=== PATIENT | female | born 1990 | race Caucasian/White ===

== ENCOUNTER 2019-07-19 20:50 | Emergency (ER) | payer MEDICAID ==
[~2019-07-19] VITALS: Ht 170.2 cm; Wt 70.3 kg
[2019-07-19 21:25] VITALS: BP_SYST 114
[2019-07-19 22:56] LABS: THYROID STIMULATING HORMONE 1.58 uIu/mL (0.36-3.74)
[2019-07-19 23:23] VITALS: BP_SYST 119
== END 2019-07-19 23:17 | disposition home or self-care (01) ==
LOC: SED 20:50
DX: R22.1 Localized swelling, mass and lump, neck (principal)
CPT/HCPCS: 36415; 70360-TC; 84439; 84443-TC; 86308-TC; 86403; 87081; 99284

== ENCOUNTER 2020-04-05 04:59 | Emergency (ER) | payer OTHER, MEDICAID ==
[~2020-04-05] VITALS: Ht 165.1 cm; Wt 68.9 kg
[2020-04-05 04:59] VITALS: BP_SYST 149
--- NOTE | 2020-04-05 05:17 | NUR ---
Patient to ER bed 4 to gown for evaluation. Side rails up.
--- NOTE | 2020-04-05 05:18 | NUR ---
Patient came to ER. C/O abdominal pain x 3 days. A/O,X4, LLQ abdominal pain, pain rate 8/10, radiate to lower back, vss.
--- NOTE | 2020-04-05 05:32 | NUR ---
ER at bedside examining patient.
[2020-04-05] MEDS ORDERED: NACL 0.9% 1,000 ML IV ONE (05:40)
[2020-04-05] MEDS ORDERED: KETOROLAC TROMETHAMINE 30 MG VIAL IVP ONE (05:45)
[2020-04-05 05:49] LABS: BILIRUBIN,URINE NEGATIVE (NEGATIVE); BLOOD, URINE NEGATIVE (NEGATIVE); CLARITY/URINE CLEAR (CLEAR); COLOR,URINE YELLOW (YELLOW); GLUCOSE,URINE NEGATIVE (NEGATIVE); KETONES,URINE NEGATIVE (NEGATIVE); LEUKOCYTE ESTERASE ,URINE TRACE (NEGATIVE); NITRITE, URINE NEGATIVE (NEGATIVE); PH,URINE 6.5 (5.0-8.0); PROTEIN URINE NEGATIVE (NEGATIVE); UROBILINOGEN,URINE 0.2 (0.2-1.0)
[2020-04-05 05:53] LABS: BACTERIA,URINE FEW /HPF (None Seen); RBC,URINE 0-3 /HPF (0-3)
[2020-04-05] MEDS ORDERED: NALOXONE HCL 0.4 MG/ML AMP (NARCAN) ONE (05:58)
[2020-04-05 06:05] LABS: BASOPHILS % (AUTO) 0.5 % (0.0-2.0); EOSINOPHILS # (AUTO) 0.1 K/uL (0.0-0.4); HEMATOCRIT 41.4 % (36-48); HEMOGLOBIN 13.7 g/dL (12.0-16.0); LYMPHOCYTES # (AUTO) 1.8 K/uL (1.0-5.5); LYMPHOCYTES % (AUTO) 34.3 % (20.5-51.5); MEAN CORPUSCULAR HEMOGLOBIN 31 pg (27-31); MEAN CORPUSCULAR HGB CONC 33 % (32-36); MEAN CORPUSCULAR VOLUME 92 fL (79.0-98.0); MONOCYTES # (AUTO) 0.4 K/uL (0.0-1.0); MONOCYTES % (AUTO) 8.1 % (1.7-9.3); NEUTROPHILS # (AUTO) 2.9 K/uL (1.8-7.7); NEUTROPHILS % (AUTO) 56.1 % (40.0-70.0); PLATELET COUNT (AUTO) 201 K/uL (130-430); RED BLOOD CELL COUNT(AUTO) 4.48 MIL/uL (4.2-6.2); RED CELL DISTRIBUTION WIDTH 12.4 % (9.0-15.0); WHITE BLOOD COUNT (AUTO) 5.2 K/uL (4.8-10.8)
--- NOTE | 2020-04-05 06:10 | NUR ---
Given Toradol 30 mg IV half dose , patient states " I feel hot, buning chest and palpitation." , Stop medication and reported Dr. Moon.
[2020-04-05] MEDS ORDERED: DIPHENHYDRAMINE INJ 50 MG/ML VIAL IVP ONE (06:15)
--- NOTE | 2020-04-05 06:22 | NUR ---
Patient refused Benadyl IV medication, Dr. Moon notified.
[2020-04-05] MEDS ORDERED: DIPHENHYDRAMINE HCL 25 MG CAPSULE PO ONE (06:30)
[2020-04-05 06:37] LABS: CALCIUM 8.9 mg/dL (8.4-11.0); CREATININE 0.89 mg/dL (0.55-1.30)
[2020-04-05] MEDS ORDERED: DIPHENHYDRAMINE INJ 50 MG/ML VIAL ONE (06:37)
[2020-04-05 06:43] LABS: ALBUMIN 3.5 g/dL (3.4-4.8); TOTAL BILIRUBIN 0.3 mg/dL (0.0-1.0)
--- NOTE | 2020-04-05 08:15 | NUR ---
PT ALERT AND ORIENTED. ABLE TO COMMUNICATE ALL NEEDS WELL. CONTINUES TO C/O LEFT LOWER ABDOMINAL PAIN. 10/23 AT THIS TIME. ABLE TO AMBULATE TO BATHROOM. VSS.
[2020-04-05 09:14] VITALS: BP_SYST 124
--- NOTE | 2020-04-05 09:16 | NUR ---
Patient given written and verbal discharge instructions and verbalizes understanding. ER MD discussed with patient the results and treatment provided. Patient in stable condition. ID arm band removed. IV catheter removed intact and dressing applied, no active bleeding. Rx of Ibuprofen given. Patient educated on pain management and to follow up with PMD. Pain Scale 0/10 . Opportunity for questions provided and answered. Medication side effect fact sheet provided.
== END 2020-04-05 09:16 | disposition home or self-care (01) ==
LOC: SED 04:59
DX: R10.32 Left lower quadrant pain (principal); F41.9 Anxiety disorder, unspecified; Z88.5 Allergy status to narcotic agent
CPT/HCPCS: 36415; 76830; 76857; 80053; 81000; 81025; 85025; 96361; 96374; 99284; J1885; J7030; Q0163; J1200; J2310

== ENCOUNTER 2020-07-14 18:43 | Emergency (ER) | payer OTHER, MEDICAID ==
[~2020-07-14] VITALS: Ht 167.6 cm; Wt 63.5 kg
[2020-07-14 18:48] VITALS: BP_SYST 139
--- NOTE | 2020-07-14 19:11 | NUR ---
Patient to ER bed 3 to gown for evaluation. Side rails up. Report given to Erin ISSA.
--- NOTE | 2020-07-14 19:15 | NUR ---
PT AAO AND AMBULATORY C/O RIGHT TOE PAIN AFTER KICKING AN OBJECT. PT REPORTS PAIN IS CURRENTLY 8/10 ON PAIN SCALE.
--- NOTE | 2020-07-14 19:40 | NUR ---
ER Dr. VANCE at bedside examining patient.
[2020-07-14 20:00] VITALS: BP_SYST 139
[2020-07-14] MEDS ORDERED: IBUPROFEN 600 MG TABLET PO ONE (20:00)
--- NOTE | 2020-07-14 20:00 | NUR ---
Patient given written and verbal discharge instructions and verbalizes understanding. DR. RAJIV CARNEY MD discussed with patient the results and treatment provided. Patient in stable condition. ID arm band removed. Rx of IBUPROFEN given. Patient educated on pain management and to follow up with PMD. Pain Scale 2/10. Opportunity for questions provided and answered. Medication side effect fact sheet provided.
== END 2020-07-14 20:00 | disposition home or self-care (01) ==
LOC: SED 18:43
DX: S92.911A Unspecified fracture of right toe(s), initial encounter for closed fracture (principal); Z88.6 Allergy status to analgesic agent; W22.8XXA Striking against or struck by other objects, initial encounter; Y93.89 Activity, other specified; Y92.89 Other specified places as the place of occurrence of the external cause; Y99.8 Other external cause status
CPT/HCPCS: 99283

== ENCOUNTER 2020-07-26 16:26 | Emergency (ER) | payer OTHER, MEDICAID ==
[~2020-07-26] VITALS: Ht 167.6 cm; Wt 63.5 kg
[2020-07-26 16:31] VITALS: BP_SYST 143
--- NOTE | 2020-07-26 16:45 | NUR ---
Placed in room H1 . Placed on stained glass window designer, blood pressure machine and pulse oximeter. To gown for exam. Side rails up.
--- NOTE | 2020-07-26 17:05 | NUR ---
"RECEIVED AND ON MONITOR, ST [address] NO ECTOPY. RESP TACY 24. STATES FEELING "A LITTLE BETTER"
--- NOTE | 2020-07-26 17:35 | NUR ---
STATED FEELING BETTER, RESP UNLABORED, SKIN WARM AND DRY. COMMUNICATES CLEARLY IN FULL COMPLETE SENTENCES
[2020-07-26] MEDS ORDERED: LORazepam 1 MG TABLET PO ONE (17:45)
--- NOTE | 2020-07-26 18:15 | NUR ---
Patient given written and verbal discharge instructions and verbalizes understanding. ER MD discussed with patient the results and treatment provided. Patient in stable condition. ID arm band removed. Rx XANAX given. Patient educated on pain management and to follow up with PMD. Pain Scale 0/10 Opportunity for questions provided and answered. Medication side effect fact sheet provided.
[2020-07-26 18:36] VITALS: BP_SYST 120
== END 2020-07-26 18:15 | disposition home or self-care (01) ==
LOC: SED 16:26
DX: F41.9 Anxiety disorder, unspecified (principal); R00.0 Tachycardia, unspecified; Z88.6 Allergy status to analgesic agent
CPT/HCPCS: 93005; 99283

== ENCOUNTER 2020-09-16 14:07 | Emergency (ER) | payer OTHER, MEDICAID ==
[~2020-09-16] VITALS: Ht 167.6 cm; Wt 65.8 kg
[2020-09-16 14:15] VITALS: BP_SYST 124
--- NOTE | 2020-09-16 14:50 | NUR ---
Patient to ER bed 3 to gown for evaluation. Side rails up. Report given to Elisabeth ISSA.
--- NOTE | 2020-09-16 14:52 | NUR ---
Patient presented to ER C/O abdominal pain. Patient A&Ox4, ambulatory to ER, afebrile, skin pink & wrm, pain 11/23, denies N/V/D. Patient states she is 8 weeks , abdominal pain with "feeling hot" for 2 days with out fever.
--- NOTE | 2020-09-16 14:55 | NUR ---
ER Dr. FLOREZ at bedside examining patient.
[2020-09-16 15:49] LABS: BASOPHILS % (AUTO) 0.4 % (0.0-2.0); HEMATOCRIT 40.1 % (36-48); HEMOGLOBIN 13.8 g/dL (12.0-16.0); LYMPHOCYTES # (AUTO) 1.9 K/uL (1.0-5.5); LYMPHOCYTES % (AUTO) 23.3 % (20.5-51.5); MEAN CORPUSCULAR HEMOGLOBIN 32 pg (27-31); MEAN CORPUSCULAR HGB CONC 35 % (32-36); MEAN CORPUSCULAR VOLUME 92 fL (79.0-98.0); MONOCYTES # (AUTO) 0.7 K/uL (0.0-1.0); MONOCYTES % (AUTO) 8.4 % (1.7-9.3); NEUTROPHILS # (AUTO) 5.4 K/uL (1.8-7.7); NEUTROPHILS % (AUTO) 67.9 % (40.0-70.0); PLATELET COUNT (AUTO) 225 K/uL (130-430); RED BLOOD CELL COUNT(AUTO) 4.36 MIL/uL (4.2-6.2)
[2020-09-16 16:11] LABS: CALCIUM 8.6 mg/dL (8.4-11.0); CREATININE 0.81 mg/dL (0.55-1.30); POTASSIUM 3.7 mmol/L (3.5-5.1)
[2020-09-16 16:38] LABS: ALBUMIN 3.9 g/dL (3.4-4.8); TOTAL BILIRUBIN 0.3 mg/dL (0.0-1.0)
[2020-09-16 16:51] LABS: BILIRUBIN,URINE NEGATIVE (NEGATIVE); BLOOD, URINE NEGATIVE (NEGATIVE); COLOR,URINE YELLOW (YELLOW); GLUCOSE,URINE NEGATIVE (NEGATIVE); KETONES,URINE TRACE (NEGATIVE); LEUKOCYTE ESTERASE ,URINE NEGATIVE (NEGATIVE); NITRITE, URINE NEGATIVE (NEGATIVE); PH,URINE 6.5 (5.0-8.0); PROTEIN URINE NEGATIVE (NEGATIVE); UROBILINOGEN,URINE 0.2 (0.2-1.0)
[2020-09-16 16:54] LABS: CLARITY/URINE SLIGHTLY HAZY (CLEAR)
[2020-09-16 17:39] VITALS: BP_SYST 122
--- NOTE | 2020-09-16 17:40 | NUR ---
Patient given written and verbal discharge instructions and verbalizes understanding. ER MD discussed with patient the results and treatment provided. Patient in stable condition. ID arm band removed. Rx of ZOFRAN given. Patient educated on pain management and to follow up with PMD. Pain Scale 3/10. Opportunity for questions provided and answered. Medication side effect fact sheet provided.
== END 2020-09-16 17:39 | disposition home or self-care (01) ==
LOC: SED 14:07
DX: O21.8 Other vomiting complicating pregnancy (principal); O26.891 Other specified pregnancy related conditions, first trimester; R50.9 Fever, unspecified; Z3A.08 8 weeks gestation of pregnancy
CPT/HCPCS: 36415; 76801; 80053; 81003; 83690-TC; 84702-TC; 85025; 99284

== ENCOUNTER 2021-02-22 11:44 | Observation (INO) | payer OTHER, MEDICAID ==
[2021-02-22 14:22] VITALS: BP_SYST 119
== END 2021-02-22 13:45 | disposition home or self-care (01) ==
LOC: SPU 11:44
PROVIDERS: ADMIT Specialist; ATTEND Specialist
DX: O26.853 Spotting complicating pregnancy, third trimester (principal); O62.9 Abnormality of forces of labor, unspecified; Z3A.30 30 weeks gestation of pregnancy
CPT/HCPCS: 81002; G0378

== ENCOUNTER 2021-02-24 16:12 | Observation (INO) | payer OTHER, MEDICAID ==
[~2021-02-24] VITALS: Ht 167.6 cm; Wt 74.4 kg
[2021-02-24] MEDS ORDERED: NITROFURANTOIN MONOHYD/M-CRYST 100 MG CAPSULE (MacroBID) PO ONE (17:15)
[2021-02-24 17:30] LABS: BILIRUBIN,URINE NEGATIVE (NEGATIVE); COLOR,URINE YELLOW (YELLOW); GLUCOSE,URINE NEGATIVE (NEGATIVE); KETONES,URINE NEGATIVE (NEGATIVE); LEUKOCYTE ESTERASE ,URINE 3+ (NEGATIVE); NITRITE, URINE NEGATIVE (NEGATIVE); PROTEIN URINE NEGATIVE (NEGATIVE); UROBILINOGEN,URINE 0.2 (0.2-1.0)
[2021-02-24 17:35] LABS: BLOOD, URINE TRACE (NEGATIVE); CLARITY/URINE HAZY (CLEAR)
[2021-02-24 17:42] LABS: BACTERIA,URINE MODERATE /HPF (None Seen); RBC,URINE 0-3 /HPF (0-3); WBC,URINE 20-50 /HPF (0-3)
[2021-02-24 17:43] LABS: MUCUS,URINE 1+ /LPF (None Seen)
== END 2021-02-24 17:47 | disposition home or self-care (01) ==
LOC: SPU 16:12
PROVIDERS: ADMIT Specialist; ATTEND Specialist
DX: O26.893 Other specified pregnancy related conditions, third trimester (principal); R10.30 Lower abdominal pain, unspecified; Z3A.30 30 weeks gestation of pregnancy
CPT/HCPCS: 81000; 87086; G0378

== ENCOUNTER 2021-03-12 13:13 | Observation (INO) | payer OTHER, MEDICAID ==
[~2021-03-12] VITALS: Ht 167.6 cm; Wt 76.7 kg
[2021-03-12 13:56] LABS: BILIRUBIN,URINE NEGATIVE (NEGATIVE); BLOOD, URINE NEGATIVE (NEGATIVE); COLOR,URINE YELLOW (YELLOW); GLUCOSE,URINE NEGATIVE (NEGATIVE); KETONES,URINE NEGATIVE (NEGATIVE); LEUKOCYTE ESTERASE ,URINE 2+ (NEGATIVE); NITRITE, URINE NEGATIVE (NEGATIVE); PROTEIN URINE NEGATIVE (NEGATIVE); UROBILINOGEN,URINE 0.2 (0.2-1.0)
[2021-03-12 13:57] LABS: CLARITY/URINE SLIGHTLY HAZY (CLEAR)
[2021-03-12 14:06] LABS: BASOPHILS % (AUTO) 0.1 % (0.0-2.0); EOSINOPHILS % (AUTO) 0.2 % (0.0-4.0); HEMOGLOBIN 10.7 g/dL (12.0-16.0); LYMPHOCYTES # (AUTO) 1.8 K/uL (1.0-5.5); LYMPHOCYTES % (AUTO) 17.1 % (20.5-51.5); MEAN CORPUSCULAR HEMOGLOBIN 31 pg (27-31); MEAN CORPUSCULAR HGB CONC 34 % (32-36); MEAN CORPUSCULAR VOLUME 92 fL (79.0-98.0); MONOCYTES # (AUTO) 0.7 K/uL (0.0-1.0); NEUTROPHILS # (AUTO) 7.9 K/uL (1.8-7.7); NEUTROPHILS % (AUTO) 75.6 % (40.0-70.0); PLATELET COUNT (AUTO) 194 K/uL (130-430); RED BLOOD CELL COUNT(AUTO) 3.48 MIL/uL (4.2-6.2); RED CELL DISTRIBUTION WIDTH 12.8 % (9.0-15.0); WHITE BLOOD COUNT (AUTO) 10.4 K/uL (4.8-10.8)
[2021-03-12 14:07] LABS: BACTERIA,URINE MODERATE /HPF (None Seen); MUCUS,URINE 2+ /LPF (None Seen); RBC,URINE 0-3 /HPF (0-3)
[2021-03-12 14:08] LABS: CALCIUM 8.6 mg/dL (8.4-11.0); CREATININE 0.66 mg/dL (0.55-1.30)
[2021-03-12 14:14] LABS: ALBUMIN 2.6 g/dL (3.4-4.8); TOTAL BILIRUBIN 0.2 mg/dL (0.0-1.0)
== END 2021-03-12 17:00 | disposition home or self-care (01) ==
LOC: SPU 13:13
PROVIDERS: ADMIT Specialist; ATTEND Specialist
DX: O26.893 Other specified pregnancy related conditions, third trimester (principal); R10.9 Unspecified abdominal pain; O99.891 Other specified diseases and conditions complicating pregnancy; M54.9 Dorsalgia, unspecified; Z3A.32 32 weeks gestation of pregnancy
CPT/HCPCS: 36415; 76700; 80053; 81000; 85025; G0378

== ENCOUNTER 2021-03-21 17:30 | Observation (INO) | payer OTHER, MEDICAID ==
[~2021-03-21] VITALS: Ht 167.6 cm; Wt 77.1 kg
== END 2021-03-21 18:50 | disposition home or self-care (01) ==
LOC: SPU 17:30
PROVIDERS: ADMIT Specialist; ATTEND Specialist
DX: O26.893 Other specified pregnancy related conditions, third trimester (principal); R10.9 Unspecified abdominal pain; O99.891 Other specified diseases and conditions complicating pregnancy; N13.30 Unspecified hydronephrosis; Z3A.34 34 weeks gestation of pregnancy
CPT/HCPCS: 81002; G0378

== ENCOUNTER 2021-03-30 12:51 | Emergency (ER) | payer OTHER, MEDICAID ==
[~2021-03-30] VITALS: Ht 167.6 cm; Wt 78.5 kg
--- NOTE | 2021-03-30 12:51 | NUR ---
Patient to ER bed 1 to gown for evaluation. Side rails up.
[2021-03-30 12:57] VITALS: BP_SYST 140
--- NOTE | 2021-03-30 13:00 | NUR ---
pt referred by Dr. Antunez to r/out RLE DVT. Pt has been on bed rest for approx 2 weeks. Arrives w/ RLE pain 12/23
--- NOTE | 2021-03-30 13:10 | NUR ---
ER at bedside examining patient.
[2021-03-30 13:35] LABS: BASOPHILS % (AUTO) 0.2 % (0.0-2.0); EOSINOPHILS % (AUTO) 0.2 % (0.0-4.0); HEMATOCRIT 31.2 % (36-48); HEMOGLOBIN 10.6 g/dL (12.0-16.0); INR 0.9 (0.8-1.2); LYMPHOCYTES # (AUTO) 1.6 K/uL (1.0-5.5); LYMPHOCYTES % (AUTO) 17.7 % (20.5-51.5); MEAN CORPUSCULAR HEMOGLOBIN 31 pg (27-31); MEAN CORPUSCULAR HGB CONC 34 % (32-36); MEAN CORPUSCULAR VOLUME 90 fL (79.0-98.0); MONOCYTES # (AUTO) 0.5 K/uL (0.0-1.0); MONOCYTES % (AUTO) 5.6 % (1.7-9.3); NEUTROPHILS # (AUTO) 6.7 K/uL (1.8-7.7); NEUTROPHILS % (AUTO) 76.3 % (40.0-70.0); PLATELET COUNT (AUTO) 188 K/uL (130-430); PROTHROMBIN TIME 9.7 SECS (9.5-12.5); RED BLOOD CELL COUNT(AUTO) 3.48 MIL/uL (4.2-6.2); RED CELL DISTRIBUTION WIDTH 13.2 % (9.0-15.0); WHITE BLOOD COUNT (AUTO) 8.8 K/uL (4.8-10.8)
[2021-03-30 13:36] LABS: ANION GAP 10 (5-15); CALCIUM 8.5 mg/dL (8.4-11.0); CHLORIDE 105 mmol/L (98-107); CREATININE 0.67 mg/dL (0.55-1.30); GFR AFRICAN AMERICAN 132 mL/min (>90); GLUCOSE 100 mg/dL (70-99); POTASSIUM 3.5 mmol/L (3.5-5.1); SODIUM SERUM 138 mmol/L (136-145); UREA NITROGEN, BLOOD 9 mg/dL (8-21)
[2021-03-30 13:40] LABS: ALANINE AMINOTRANSFERASE 23 U/L (12-78); ALBUMIN 2.7 g/dL (3.4-4.8); ASPARTATE AMINOTRANSFERASE 20 U/L (10-37); C-REACTIVE PROTEIN QUANT < 0.2 mg/dL (0-0.5); TOTAL BILIRUBIN 0.3 mg/dL (0.0-1.0)
--- NOTE | 2021-03-30 14:00 | NUR ---
US at the bedside
[2021-03-30 15:05] VITALS: BP_SYST 140
--- NOTE | 2021-03-30 15:05 | NUR ---
Patient given written and verbal discharge instructions and verbalizes understanding. ER MD discussed with patient the results and treatment provided. Patient in stable condition. ID arm band removed. Patient educated on pain management and to follow up with PMD. Pain Scale 3/10. Opportunity for questions provided and answered. Medication side effect fact sheet provided.
== END 2021-03-30 15:05 | disposition home or self-care (01) ==
LOC: SED 12:51
DX: M79.604 Pain in right leg (principal)
CPT/HCPCS: 36415; 80053; 85025; 85610-TC; 85730-TC; 86140; 93971; 99284

== ENCOUNTER 2021-04-02 08:16 | Emergency (ER) | payer OTHER, MEDICAID ==
[~2021-04-02] VITALS: Ht 162.6 cm; Wt 78.5 kg
[2021-04-02 08:19] VITALS: BP_SYST 154
[2021-04-02 08:34] LABS: BILIRUBIN,URINE NEGATIVE (NEGATIVE); BLOOD, URINE NEGATIVE (NEGATIVE); CLARITY/URINE CLEAR (CLEAR); COLOR,URINE YELLOW (YELLOW); GLUCOSE,URINE NEGATIVE (NEGATIVE); KETONES,URINE NEGATIVE (NEGATIVE); LEUKOCYTE ESTERASE ,URINE 3+ (NEGATIVE); NITRITE, URINE NEGATIVE (NEGATIVE); PH,URINE 6.5 (5.0-8.0); PROTEIN URINE NEGATIVE (NEGATIVE); UROBILINOGEN,URINE 0.2 (0.2-1.0)
[2021-04-02 08:47] LABS: BACTERIA,URINE FEW /HPF (None Seen); MUCUS,URINE 1+ /LPF (None Seen); RBC,URINE 0-3 /HPF (0-3)
[2021-04-02 08:50] LABS: BARBITURATE, URINE NEGATIVE (NEG <=200); BENZODIAZEPINE, URINE NEGATIVE (NEG <=150); CANNABINOID, URINE NEGATIVE (NEG <=50); COCAINE, URINE NEGATIVE (NEG <=150); METHAMPHETAMINES SCREEN,URINE NEGATIVE (NEG <=500); OPIATE, URINE NEGATIVE (NEG <=100); PHENCYCLIDINE SCREEN,URINE NEGATIVE (NEG <=25); URINE AMPHETAMINE NEGATIVE (NEG <=500); URINE METHADONE NEGATIVE (NEG <=200); URINE OXYCODONE SCREEN NEGATIVE (NEG <=100); URINE PROPOXYPHENE SCREEN NEGATIVE (NEG <=300)
[2021-04-02 08:51] LABS: UR TRICYCLIC ANTIDEPRESSANTS NEGATIVE (NEG <=300)
[2021-04-02 09:30] LABS: BASOPHILS # (AUTO) 0.2 K/uL (0.0-0.2); BASOPHILS % (AUTO) 1.7 % (0.0-2.0); EOSINOPHILS % (AUTO) 0.2 % (0.0-4.0); HEMATOCRIT 31.1 % (36-48); HEMOGLOBIN 10.5 g/dL (12.0-16.0); LYMPHOCYTES # (AUTO) 1.4 K/uL (1.0-5.5); LYMPHOCYTES % (AUTO) 15.4 % (20.5-51.5); MEAN CORPUSCULAR HEMOGLOBIN 30 pg (27-31); MEAN CORPUSCULAR HGB CONC 34 % (32-36); MEAN CORPUSCULAR VOLUME 90 fL (79.0-98.0); MONOCYTES # (AUTO) 0.5 K/uL (0.0-1.0); MONOCYTES % (AUTO) 5.2 % (1.7-9.3); NEUTROPHILS # (AUTO) 7.1 K/uL (1.8-7.7); NEUTROPHILS % (AUTO) 77.5 % (40.0-70.0); PLATELET COUNT (AUTO) 185 K/uL (130-430); RED BLOOD CELL COUNT(AUTO) 3.47 MIL/uL (4.2-6.2); RED CELL DISTRIBUTION WIDTH 13.2 % (9.0-15.0); WHITE BLOOD COUNT (AUTO) 9.2 K/uL (4.8-10.8)
[2021-04-02] MEDS ORDERED: OXYCODONE/ACETAMINOPHEN 5-325 TABLET PO ONE (09:30)
[2021-04-02 09:46] LABS: CALCIUM 8.8 mg/dL (8.4-11.0); CREATININE 0.69 mg/dL (0.55-1.30); POTASSIUM 3.9 mmol/L (3.5-5.1)
[2021-04-02 09:52] LABS: ALBUMIN 2.6 g/dL (3.4-4.8); TOTAL BILIRUBIN 0.2 mg/dL (0.0-1.0)
[2021-04-02] MEDS ORDERED: OXYC-128 PO (10:17)
[2021-04-02 10:54] VITALS: BP_SYST 154
== END 2021-04-02 10:55 | disposition home or self-care (01) ==
LOC: SED 08:16 → EDSTATUS 08:16 → SED 10:55
DX: O99.891 Other specified diseases and conditions complicating pregnancy (principal); N13.30 Unspecified hydronephrosis; K21.9 Gastro-esophageal reflux disease without esophagitis; Z3A.35 35 weeks gestation of pregnancy; Z88.5 Allergy status to narcotic agent; Z79.899 Other long term (current) drug therapy
CPT/HCPCS: 36415; 76700-TC; 80053; 80307; 81000; 82150; 83605; 83690; 84703; 85025; 87086; 99284

== ENCOUNTER 2021-04-20 10:15 | Observation (INO) | payer OTHER, MEDICAID ==
[~2021-04-20] VITALS: Ht 167.6 cm; Wt 80.7 kg
[~2021-04-20 10:15] MED LIST: OXYC-128 PO
[2021-04-20] MEDS ORDERED: OXYCODONE/ACETAMINOPHEN 5-325 TABLET PO PRN (12:00)
== END 2021-04-20 14:50 | disposition home or self-care (01) ==
LOC: SPU 10:15
PROVIDERS: ADMIT Specialist; ATTEND Specialist
DX: O62.9 Abnormality of forces of labor, unspecified (principal); Z3A.38 38 weeks gestation of pregnancy
CPT/HCPCS: 59025; 76770; 76819; 81002; G0378

== ENCOUNTER 2021-04-22 10:40 | Inpatient (IN) | payer OTHER, MEDICAID, SELFPAY ==
[~2021-04-22] VITALS: Ht 167.6 cm; Wt 82.6 kg
[2021-04-22] MEDS ORDERED: LR 1,000 ML IV ONE (12:00)
[2021-04-22 12:39] LABS: BASOPHILS % (AUTO) 0.2 % (0.0-2.0); EOSINOPHILS % (AUTO) 0.1 % (0.0-4.0); HEMATOCRIT 31.8 % (36-48); HEMOGLOBIN 10.5 g/dL (12.0-16.0); LYMPHOCYTES # (AUTO) 1.6 K/uL (1.0-5.5); LYMPHOCYTES % (AUTO) 15.6 % (20.5-51.5); MEAN CORPUSCULAR HEMOGLOBIN 29 pg (27-31); MEAN CORPUSCULAR HGB CONC 33 % (32-36); MEAN CORPUSCULAR VOLUME 89 fL (79.0-98.0); MONOCYTES # (AUTO) 0.6 K/uL (0.0-1.0); MONOCYTES % (AUTO) 5.7 % (1.7-9.3); NEUTROPHILS # (AUTO) 7.8 K/uL (1.8-7.7); NEUTROPHILS % (AUTO) 78.4 % (40.0-70.0); PLATELET COUNT (AUTO) 183 K/uL (130-430); RED BLOOD CELL COUNT(AUTO) 3.57 MIL/uL (4.2-6.2); RED CELL DISTRIBUTION WIDTH 14.5 % (9.0-15.0)
[2021-04-22 12:49] LABS: ALBUMIN 2.5 g/dL (3.4-4.8); CALCIUM 8.3 mg/dL (8.4-11.0); CREATININE 0.75 mg/dL (0.55-1.30); TOTAL BILIRUBIN 0.3 mg/dL (0.0-1.0)
[2021-04-22] MEDS: OXYTOCIN/0.9 % SODIUM CHLORIDE 1,000 ML IV SCH (13:03)
[2021-04-22] MEDS: LR 1,000 ML IV SCH ×2 (13:04→21:12)
[2021-04-22 14:15] VITALS: BP_SYST 116
[2021-04-22] MEDS ORDERED: fentaNYL CITRATE/PF 100 MCG/2 ML AMP ONE (16:37)
[2021-04-22] MEDS ORDERED: FENT2mCg/mL-ROPIVA0.2%/NS EPID 200 ML EP SCH (16:37)
[2021-04-22] MEDS ORDERED: ROPIVACAINE HCL/PF 0.2% 200 ML ONE (16:38)
[2021-04-23] MEDS: LR 1,000 ML IV SCH (05:21)
[2021-04-23] MEDS ORDERED: LR 500 ML IV ONE (07:15)
[2021-04-23] MEDS ORDERED: METHYLERGONOVINE MALEATE 0.2 MG/ML AMP ONE (07:16)
[2021-04-23] MEDS ORDERED: ROPIVACAINE HCL/PF 0.2% 200 ML ONE (08:32)
[2021-04-23] MEDS ORDERED: fentaNYL CITRATE/PF 100 MCG/2 ML AMP ONE (08:45)
[2021-04-23] MEDS: OXYTOCIN/0.9 % SODIUM CHLORIDE 1,000 ML IV SCH (13:57)
[2021-04-23] MEDS ORDERED: HYDROCORTISONE 0.5% CREAM 28.4 GM CREAM.GM. TP PRN (14:15)
[2021-04-23] MEDS ORDERED: HYDROcodone/ACETAMIN 5-325 MG TAB (NORCO/ VICODIN) PO PRN (14:15)
[2021-04-23] MEDS ORDERED: LANOLIN 7 GM OINT. TP PRN (14:15)
[2021-04-23] MEDS ORDERED: RHO(D) IMMUNE GLOBULIN/MALTOSE 1500 UNITS/1.3 ML (WINHRO) IM PRN (14:15)
[2021-04-23] MEDS ORDERED: MEASLES,MUMPS&RUBELLA VACC/PF 12500 UNIT/0.5 ML VIAL SUBQ PRN (14:15)
[2021-04-23] MEDS ORDERED: OXYTOCIN/0.9 % SODIUM CHLORIDE 1,000 ML IV SCH (14:15)
[2021-04-23] MEDS ORDERED: NALOXONE HCL 0.4 MG/ML AMP (NARCAN) IVP PRN (14:15)
[2021-04-23] MEDS ORDERED: WITCH HAZEL LEAF 1 MED.PAD MED.PAD TP PRN (14:15)
[2021-04-23] MEDS ORDERED: OXYTOCIN/0.9 % SODIUM CHLORIDE 1,000 ML IV ONE (14:15)
[2021-04-23] MEDS ORDERED: ANUSOL 1 EA SUPP.RECT (PREPARATION H) RC PRN (14:15)
[2021-04-23] MEDS ORDERED: DIPH-TET-PERTUS Vaccine 0.5 ML VIAL (ADACEL) I.M. PRN (14:15)
[2021-04-23] MEDS ORDERED: METHYLERGONOVINE MALEATE 0.2 MG TABLET PO PRN (14:15)
[2021-04-23] MEDS ORDERED: DERMOPLAST SPRAY TP PRN (14:15)
[2021-04-23] MEDS: IBUPROFEN 600 MG TABLET PO SCH (18:06)
[2021-04-23] MEDS ORDERED: TEMAZEPAM 15 MG CAPSULE PO PRN (21:00)
[2021-04-23] MEDS: OXYCODONE/ACETAMINOPHEN 5-325 TABLET PO PRN (21:24)
[2021-04-23] MEDS: SENNOSIDES/DOCUSATE SODIUM 1 TAB TABLET(SENOKOT-S) PO SCH (22:03)
[2021-04-24] MEDS: IBUPROFEN 600 MG TABLET PO SCH ×5 (00:11→23:54)
[2021-04-24] MEDS: OXYCODONE/ACETAMINOPHEN 5-325 TABLET PO PRN ×4 (03:21→20:57)
[2021-04-24 06:41] LABS: BASOPHILS % (AUTO) 0.2 % (0.0-2.0); EOSINOPHILS % (AUTO) 0.4 % (0.0-4.0); HEMATOCRIT 24.6 % (36-48); HEMOGLOBIN 8.2 g/dL (12.0-16.0); LYMPHOCYTES # (AUTO) 1.5 K/uL (1.0-5.5); LYMPHOCYTES % (AUTO) 18.7 % (20.5-51.5); MEAN CORPUSCULAR HEMOGLOBIN 30 pg (27-31); MEAN CORPUSCULAR HGB CONC 33 % (32-36); MEAN CORPUSCULAR VOLUME 89 fL (79.0-98.0); MONOCYTES # (AUTO) 0.6 K/uL (0.0-1.0); MONOCYTES % (AUTO) 7.2 % (1.7-9.3); NEUTROPHILS # (AUTO) 6.1 K/uL (1.8-7.7); NEUTROPHILS % (AUTO) 73.5 % (40.0-70.0); PLATELET COUNT (AUTO) 143 K/uL (130-430); RED BLOOD CELL COUNT(AUTO) 2.76 MIL/uL (4.2-6.2); RED CELL DISTRIBUTION WIDTH 14.9 % (9.0-15.0); WHITE BLOOD COUNT (AUTO) 8.3 K/uL (4.8-10.8)
[2021-04-24] MEDS: DOCUSATE SODIUM 100 MG CAPSULE PO SCH (15:28)
[2021-04-24] MEDS: SENNOSIDES/DOCUSATE SODIUM 1 TAB TABLET(SENOKOT-S) PO SCH (20:56)
[2021-04-24 21:05] LABS: BILIRUBIN,URINE NEGATIVE (NEGATIVE); BLOOD, URINE 2+ (NEGATIVE); COLOR,URINE YELLOW (YELLOW); GLUCOSE,URINE NEGATIVE (NEGATIVE); KETONES,URINE NEGATIVE (NEGATIVE); LEUKOCYTE ESTERASE ,URINE 2+ (NEGATIVE); NITRITE, URINE POSITIVE (NEGATIVE); PH,URINE 6.5 (5.0-8.0); PROTEIN URINE NEGATIVE (NEGATIVE); UROBILINOGEN,URINE 0.2 (0.2-1.0)
[2021-04-24 21:29] LABS: CLARITY/URINE HAZY (CLEAR)
[2021-04-24 22:26] LABS: BACTERIA,URINE MANY /HPF (None Seen); MUCUS,URINE None Seen /LPF (None Seen); WBC,URINE 20-50 /HPF (0-3)
[2021-04-25] MEDS: OXYCODONE/ACETAMINOPHEN 5-325 TABLET PO PRN ×3 (04:09→15:20)
[2021-04-25] MEDS: IBUPROFEN 600 MG TABLET PO SCH ×2 (06:02→12:27)
[2021-04-25] MEDS: DOCUSATE SODIUM 100 MG CAPSULE PO SCH (08:34)
--- NOTE | 2021-04-25 12:58 | NUR ---
Called by RN-patient scored 10 on post depression screening. I spoke w/ patient-she voiced excitement to be taking her baby home to meet her 2 older siblings. She appears comfortable w/ infants care/feeding-this is her 3rd child. She was given resources for support groups for mothers experiencing post stress and depression. She was encouraged to f/u with OB and Plant Etiologist within 1 week.
[2021-04-25 19:06] LABS: FTA-Ab (T PALLIDUM) Non Reactive (Non Reactive)
== END 2021-04-25 15:00 | disposition home or self-care (01) | DRG 805 ==
LOC: SPU 11:46
PROVIDERS: ADMIT Specialist; ATTEND Specialist
PROC: 10D07Z6 Extraction of Products of Conception, Vacuum, Via Natural or Artificial Opening (ICD-10-PCS; principal; 2021-04-23)
PROC: 3E0R3BZ Introduction of Anesthetic Agent into Spinal Canal, Percutaneous Approach (ICD-10-PCS; 2021-04-23)
PROC: 00HU33Z Insertion of Infusion Device into Spinal Canal, Percutaneous Approach (ICD-10-PCS; 2021-04-23)
PROC: 0HQ9XZZ Repair Perineum Skin, External Approach (ICD-10-PCS; 2021-04-23)
PROC: 3E0234Z Introduction of Serum, Toxoid and Vaccine into Muscle, Percutaneous Approach (ICD-10-PCS; 2021-04-23)
DX: O32.3XX0 Maternal care for face, brow and chin presentation, not applicable or unspecified (principal); O75.3 Other infection during labor; Z37.0 Single live birth; O41.03X0 Oligohydramnios, third trimester, not applicable or unspecified; N13.30 Unspecified hydronephrosis; Z20.822 Contact with and (suspected) exposure to COVID-19; O99.892 Other specified diseases and conditions complicating childbirth; O70.0 First degree perineal laceration during delivery; Z3A.39 39 weeks gestation of pregnancy
CPT/HCPCS: 36415; 80053; 81000; 81002; 85025; 86592; 86780; 86870; 86886; 86900; 86901; 87086; 94760; J2210; J2590; J2790; J3010

== ENCOUNTER 2021-05-02 15:32 | Emergency (ER) | payer OTHER, MEDICAID ==
[~2021-05-02] VITALS: Ht 167.6 cm; Wt 75.7 kg
[2021-05-02 16:20] VITALS: BP_SYST 115
--- NOTE | 2021-05-02 16:20 | NUR ---
Pt to remain in ER lobby until ER bed becomes available.
--- NOTE | 2021-05-02 17:00 | NUR ---
Placed in room 04 . Placed on monitoring manager, blood pressure machine and pulse oximeter. To gown for exam. Side rails up. Report given to LUIS MANUEL ZIMMERMAN
--- NOTE | 2021-05-02 17:07 | NUR ---
Pt came into ER with complaint of right flank pain 7/10 constant dull pain X7days. Pt had a baby on the 8th. Last BM was today. Pt reports foul odor in her urine. Pt VSS resting in [facility] AAOX4 speaking full sentences. Pt reports being prescribed percocets for the pain and the last one taken was tosay at 10AM. Breathing is even and unlabored.
--- NOTE | 2021-05-02 17:10 | NUR ---
Urine collected and sent to lab.
--- NOTE | 2021-05-02 17:13 | NUR ---
ER at bedside examining patient.
--- NOTE | 2021-05-02 17:37 | NUR ---
Lab at bedside.
--- NOTE | 2021-05-02 18:13 | NUR ---
Pt sitting in [facility] VSS no distress noted at this time.
[2021-05-02 18:14] LABS: BASOPHILS % (AUTO) 0.7 % (0.0-2.0); EOSINOPHILS # (AUTO) 0.1 K/uL (0.0-0.4); EOSINOPHILS % (AUTO) 1.3 % (0.0-4.0); HEMATOCRIT 32.6 % (36-48); HEMOGLOBIN 10.8 g/dL (12.0-16.0); LYMPHOCYTES # (AUTO) 1.4 K/uL (1.0-5.5); MEAN CORPUSCULAR HEMOGLOBIN 29 pg (27-31); MEAN CORPUSCULAR HGB CONC 33 % (32-36); MEAN CORPUSCULAR VOLUME 89 fL (79.0-98.0); MONOCYTES # (AUTO) 0.4 K/uL (0.0-1.0); MONOCYTES % (AUTO) 7.6 % (1.7-9.3); NEUTROPHILS # (AUTO) 3.4 K/uL (1.8-7.7); NEUTROPHILS % (AUTO) 64.4 % (40.0-70.0); PLATELET COUNT (AUTO) 293 K/uL (130-430); RED BLOOD CELL COUNT(AUTO) 3.68 MIL/uL (4.2-6.2); RED CELL DISTRIBUTION WIDTH 14.8 % (9.0-15.0); WHITE BLOOD COUNT (AUTO) 5.3 K/uL (4.8-10.8)
[2021-05-02 18:15] LABS: BILIRUBIN,URINE NEGATIVE (NEGATIVE); BLOOD, URINE 3+ (NEGATIVE); CLARITY/URINE CLEAR (CLEAR); COLOR,URINE YELLOW (YELLOW); GLUCOSE,URINE NEGATIVE (NEGATIVE); KETONES,URINE NEGATIVE (NEGATIVE); LEUKOCYTE ESTERASE ,URINE 3+ (NEGATIVE); NITRITE, URINE NEGATIVE (NEGATIVE); PROTEIN URINE NEGATIVE (NEGATIVE); UROBILINOGEN,URINE 0.2 (0.2-1.0)
[2021-05-02 18:24] LABS: INR 0.9 (0.8-1.2); PROTHROMBIN TIME 9.9 SECS (9.5-12.5)
[2021-05-02 18:26] LABS: CALCIUM 8.7 mg/dL (8.4-11.0); CREATININE 0.82 mg/dL (0.55-1.30); POTASSIUM 4.2 mmol/L (3.5-5.1)
[2021-05-02 18:33] LABS: ALBUMIN 2.9 g/dL (3.4-4.8); TOTAL BILIRUBIN 0.2 mg/dL (0.0-1.0)
--- NOTE | 2021-05-02 19:04 | NUR ---
ASSUMED TOTAL OF PATIENT. VSS NO ACUTE DISTRESS NOTED
--- NOTE | 2021-05-02 19:04 | NUR ---
Care endorsed to Dick ISSA.
[2021-05-02 19:12] LABS: WBC,URINE 50-80 /HPF (0-3)
[2021-05-02 19:13] LABS: BACTERIA,URINE MODERATE /HPF (None Seen); MUCUS,URINE None Seen /LPF (None Seen)
[2021-05-02] MEDS ORDERED: OXYCODONE/ACETAMINOPHEN 5-325 TABLET PO ONE (20:15)
[2021-05-02] MEDS ORDERED: OXYC-128 PO (20:22)
--- NOTE | 2021-05-02 20:32 | NUR ---
PATIENT SET UP FOR I&O CATHETER. PATIENT REFUSED AFTER PREPPED FOR PROCEDURE. MD NOTIFIED.
[2021-05-02 20:52] VITALS: BP_SYST 118
--- NOTE | 2021-05-02 20:52 | NUR ---
Patient given written and verbal discharge instructions and verbalizes understanding. ER MD discussed with patient the results and treatment provided. Patient in stable condition. ID arm band removed. Rx of PERCOCET given. Patient educated on pain management and to follow up with PMD. Pain Scale 0/10 Opportunity for questions provided and answered. Medication side effect fact sheet provided.
== END 2021-05-02 20:52 | disposition home or self-care (01) ==
LOC: SED 15:32
DX: R10.9 Unspecified abdominal pain (principal); K21.9 Gastro-esophageal reflux disease without esophagitis; Z88.5 Allergy status to narcotic agent; Z79.899 Other long term (current) drug therapy
CPT/HCPCS: 36415; 71045; 76376; 80053; 81000; 82150; 83690; 84703; 85025; 85379; 85610-TC; 85730-TC; 87086; 99285

== ENCOUNTER 2021-06-04 05:44 | Emergency (ER) | payer OTHER, MEDICAID ==
[~2021-06-04] VITALS: Ht 167.6 cm; Wt 74.8 kg
[2021-06-04 05:56] VITALS: BP_SYST 114
--- NOTE | 2021-06-04 05:56 | NUR ---
Patient to ER bed 7 to gown for evaluation. Side rails up.
--- NOTE | 2021-06-04 06:04 | NUR ---
ER Dr. Stuart at bedside examining patient.
--- NOTE | 2021-06-04 06:06 | NUR ---
Assumed total care of patient. Patient AAO x4 from home c/o lower right abdominal pain that started yesterday morning originally starting in her back on Wednesday. Patient denies nausea/vomiting, fever, chills, SOB, CP, diarrhea, constipation. Patient reports she was here a month ago and "was not told she had a kidney stone". Patient gave vaginal on April 23, denies any complications. Patient reports she has been taking percocet every day since and "it doesnt seem to work as well as it used to". Patient reports 8/10 pain. Patient VSS, breathing even and unlabored, no signs of acute distress noted. Will continue to monitor.
[2021-06-04] MEDS ORDERED: KETOROLAC TROMETHAMINE 30 MG VIAL IVP ONE (06:15)
--- NOTE | 2021-06-04 06:15 | NUR ---
Urine HCG done, results NEGATIVE
--- NOTE | 2021-06-04 06:25 | NUR ---
# 20 gauge angiocath placed to LAC. Use of asceptic technique. Opsite placed over site. Blood return noted. Blood for lab drawn from site. Flushed with 10 cc of normal saline. No evidence of infiltration noted. Patient tolerated well.
[2021-06-04] MEDS: NACL 0.9% 1,000 ML IV ONE (06:32)
--- NOTE | 2021-06-04 06:34 | NUR ---
Patient reports she does not want any narcotic pain medication. Patient informed of type of medication, the desired effects, and the side effects of ordered medication by MD. Patient states she does not like taking narcotics. Patient refusing pain medication at this time.
[2021-06-04 06:36] LABS: BILIRUBIN,URINE NEGATIVE (NEGATIVE); BLOOD, URINE NEGATIVE (NEGATIVE); CLARITY/URINE CLEAR (CLEAR); COLOR,URINE YELLOW (YELLOW); GLUCOSE,URINE NEGATIVE (NEGATIVE); KETONES,URINE NEGATIVE (NEGATIVE); LEUKOCYTE ESTERASE ,URINE 1+ (NEGATIVE); NITRITE, URINE NEGATIVE (NEGATIVE); PH,URINE 6.5 (5.0-8.0); PROTEIN URINE NEGATIVE (NEGATIVE); UROBILINOGEN,URINE 0.2 (0.2-1.0)
--- NOTE | 2021-06-04 06:38 | NUR ---
Patient transported to radiology via ambulation, accompanied by
[2021-06-04 06:40] LABS: BASOPHILS % (AUTO) 0.5 % (0.0-2.0); EOSINOPHILS # (AUTO) 0.1 K/uL (0.0-0.4); HEMATOCRIT 37.3 % (36-48); LYMPHOCYTES # (AUTO) 1.6 K/uL (1.0-5.5); LYMPHOCYTES % (AUTO) 32.8 % (20.5-51.5); MEAN CORPUSCULAR HEMOGLOBIN 28 pg (27-31); MEAN CORPUSCULAR HGB CONC 32 % (32-36); MEAN CORPUSCULAR VOLUME 87 fL (79.0-98.0); MONOCYTES # (AUTO) 0.5 K/uL (0.0-1.0); MONOCYTES % (AUTO) 9.8 % (1.7-9.3); NEUTROPHILS # (AUTO) 2.8 K/uL (1.8-7.7); NEUTROPHILS % (AUTO) 55.9 % (40.0-70.0); PLATELET COUNT (AUTO) 214 K/uL (130-430); RED BLOOD CELL COUNT(AUTO) 4.29 MIL/uL (4.2-6.2); RED CELL DISTRIBUTION WIDTH 14.7 % (9.0-15.0); WHITE BLOOD COUNT (AUTO) 4.9 K/uL (4.8-10.8)
[2021-06-04 06:41] LABS: BACTERIA,URINE FEW /HPF (None Seen); WBC,URINE 20-50 /HPF (0-3)
--- NOTE | 2021-06-04 06:44 | NUR ---
Returned from radiology, back to [facility].
[2021-06-04 06:49] LABS: CALCIUM 8.9 mg/dL (8.4-11.0); CREATININE 0.83 mg/dL (0.55-1.30)
[2021-06-04 06:54] LABS: ALBUMIN 3.9 g/dL (3.4-4.8); TOTAL BILIRUBIN 0.4 mg/dL (0.0-1.0)
--- NOTE | 2021-06-04 07:16 | NUR ---
Report given to LUIS MANUEL Vieira for continuation of care
--- NOTE | 2021-06-04 07:29 | NUR ---
assumed care of pt. currently rates pain 4/10 to Right flank and RLQ, has toradol ordered but denies needing it at this time
[2021-06-04] MEDS ORDERED: cefTRIAXone 1 GM in D5W 50 ML IV ONE (07:30)
[2021-06-04] MEDS ORDERED: CEPH250C PO (08:12)
[2021-06-04] MEDS ORDERED: IBUP-1969 PO (08:12)
[2021-06-04 09:04] VITALS: BP_SYST 116
--- NOTE | 2021-06-04 09:05 | NUR ---
Patient given written and verbal discharge instructions and verbalizes understanding. ER Dr. Stuart discussed with patient the results and treatment provided. Patient in stable condition. ID arm band removed. IV catheter removed intact and dressing applied, no active bleeding. Rx of Keflex amd Motrin given. Patient educated on pain management and to follow up with PMD. Pain Scale 3. Denies need for pain med at this time. Opportunity for questions provided and answered. Medication side effect fact sheet provided.
== END 2021-06-04 09:05 | disposition home or self-care (01) ==
LOC: SED 05:44
DX: N12 Tubulo-interstitial nephritis, not specified as acute or chronic (principal); K21.9 Gastro-esophageal reflux disease without esophagitis; Z88.5 Allergy status to narcotic agent; Z79.899 Other long term (current) drug therapy
CPT/HCPCS: 36415; 74176; 76376; 80053; 81000; 81025; 85025; 87040; 87086; 96360; 99284; J7030

== ENCOUNTER 2022-05-26 17:38 | Emergency (ER) | payer OTHER, MEDICAID ==
[~2022-05-26] VITALS: Ht 167.6 cm; Wt 68.9 kg
[~2022-05-26 17:38] MED LIST changes: +CEPH250C PO; +IBUP-1969 PO
[2022-05-26 17:45] VITALS: BP_SYST 141
--- NOTE | 2022-05-26 17:50 | NUR ---
Patient triaged and placed in waiting room. VSS and patient appears in no acute distress at this time. Accompanied by SELF, awaiting available bed, and MD notified of need for MSE.
[2022-05-26 19:20] LABS: BASOPHILS % (AUTO) 0.6 % (0.0-2.0); EOSINOPHILS % (AUTO) 0.9 % (0.0-4.0); HEMATOCRIT 38.6 % (36-48); LYMPHOCYTES # (AUTO) 1.3 K/uL (1.0-5.5); LYMPHOCYTES % (AUTO) 29.1 % (20.5-51.5); MEAN CORPUSCULAR HEMOGLOBIN 31 pg (27-31); MEAN CORPUSCULAR HGB CONC 34 % (32-36); MEAN CORPUSCULAR VOLUME 90 fL (79.0-98.0); MONOCYTES # (AUTO) 0.3 K/uL (0.0-1.0); MONOCYTES % (AUTO) 6.8 % (1.7-9.3); NEUTROPHILS # (AUTO) 2.8 K/uL (1.8-7.7); NEUTROPHILS % (AUTO) 62.6 % (40.0-70.0); PLATELET COUNT (AUTO) 187 K/uL (130-430); RED BLOOD CELL COUNT(AUTO) 4.28 MIL/uL (4.2-6.2); RED CELL DISTRIBUTION WIDTH 13.7 % (9.0-15.0); WHITE BLOOD COUNT (AUTO) 4.5 K/uL (4.8-10.8)
[2022-05-26 19:37] LABS: CALCIUM 8.7 mg/dL (8.4-11.0); CREATININE 1.04 mg/dL (0.55-1.30); POTASSIUM 3.7 mmol/L (3.5-5.1)
[2022-05-26 19:42] LABS: ALBUMIN 4.1 g/dL (3.4-4.8); TOTAL BILIRUBIN 0.4 mg/dL (0.0-1.0)
[2022-05-26 19:58] LABS: BILIRUBIN,URINE NEGATIVE (NEGATIVE); BLOOD, URINE NEGATIVE (NEGATIVE); CLARITY/URINE CLEAR (CLEAR); COLOR,URINE YELLOW (YELLOW); GLUCOSE,URINE NEGATIVE (NEGATIVE); KETONES,URINE NEGATIVE (NEGATIVE); LEUKOCYTE ESTERASE ,URINE NEGATIVE (NEGATIVE); NITRITE, URINE NEGATIVE (NEGATIVE); PH,URINE 6.5 (5.0-8.0); PROTEIN URINE NEGATIVE (NEGATIVE); UROBILINOGEN,URINE 0.2 (0.2-1.0)
[2022-05-26 20:39] LABS: HCG,QUANTITATIVE 0 mIU/ML (0-6); LIPASE 149 U/L (73-393)
--- NOTE | 2022-05-26 22:51 | NUR ---
ANGELIKA Mills at bedside examining patient.
[2022-05-26 23:06] VITALS: BP_SYST 138
--- NOTE | 2022-05-26 23:06 | NUR ---
Patient given written and verbal discharge instructions and verbalizes understanding. ER MD discussed with patient the results and care provided. Patient in stable condition. No Rx given. Patient educated on pain management and to follow up with PMD. Opportunity for questions provided and answered.
== END 2022-05-26 23:06 | disposition home or self-care (01) ==
LOC: SED 17:38
DX: M54.50 Low back pain, unspecified (principal); G89.29 Other chronic pain; M54.31 Sciatica, right side; K21.9 Gastro-esophageal reflux disease without esophagitis; Z88.5 Allergy status to narcotic agent; Z79.899 Other long term (current) drug therapy
CPT/HCPCS: 36415; 80053; 81003; 81025; 83690; 84702; 85025; 99283

== ENCOUNTER 2024-05-17 20:18 | Emergency (ER) | payer BC ==
[~2024-05-17] VITALS: Ht 167.6 cm; Wt 75.7 kg
[2024-05-17 20:23] VITALS: BP_SYST 144; PULSE 95; RESP 18; TEMP 98.6; O2SAT 97
[2024-05-17] MEDS: MORPHINE 4 MG INJ. 4 MG/ML VIAL IVP ONE (21:00)
[2024-05-17 21:09] LABS: BILIRUBIN,URINE NEGATIVE (NEGATIVE); BLOOD, URINE NEGATIVE (NEGATIVE); CLARITY/URINE CLEAR (CLEAR); COLOR,URINE YELLOW (YELLOW); GLUCOSE,URINE NEGATIVE (NEGATIVE); KETONES,URINE NEGATIVE (NEGATIVE); LEUKOCYTE ESTERASE ,URINE NEGATIVE (NEGATIVE); NITRITE, URINE NEGATIVE (NEGATIVE); PROTEIN URINE NEGATIVE (NEGATIVE); UROBILINOGEN,URINE 0.2 (0.2-1.0)
[2024-05-17] MEDS: cefTRIAXone 1 GM IVPB PREMIX 50 ML IV ONE (21:20)
[2024-05-17] MEDS: KETOROLAC TROMETHAMINE 30 MG VIAL IVP ONE (21:20)
[2024-05-17] MEDS: NACL 0.9% 1,000 ML IV ONE (21:21)
[2024-05-17 21:35] LABS: BASOPHILS # (AUTO) 0.1 K/uL (0.0-0.2); BASOPHILS % (AUTO) 1.9 % (0.0-2.0); EOSINOPHILS # (AUTO) 0.1 K/uL (0.0-0.4); HEMATOCRIT 39.8 % (36-48); HEMOGLOBIN 13.6 g/dL (12.0-16.0); LYMPHOCYTES # (AUTO) 1.6 K/uL (1.0-5.5); LYMPHOCYTES % (AUTO) 21.4 % (20.5-51.5); MEAN CORPUSCULAR HEMOGLOBIN 31 pg (27-31); MEAN CORPUSCULAR HGB CONC 34 % (32-36); MEAN CORPUSCULAR VOLUME 92 fL (79.0-98.0); MONOCYTES # (AUTO) 0.5 K/uL (0.0-1.0); MONOCYTES % (AUTO) 6.4 % (1.7-9.3); NEUTROPHILS # (AUTO) 5.1 K/uL (1.8-7.7); NEUTROPHILS % (AUTO) 69.3 % (40.0-70.0); PLATELET COUNT (AUTO) 266 K/uL (130-430); RED BLOOD CELL COUNT(AUTO) 4.32 MIL/uL (4.2-6.2); RED CELL DISTRIBUTION WIDTH 12.3 % (9.0-15.0); WHITE BLOOD COUNT (AUTO) 7.4 K/uL (4.8-10.8)
[2024-05-17 21:57] LABS: ALBUMIN 3.9 g/dL (3.4-4.8); BILIRUBIN,DIRECT 0.1 mg/dL (0.0-0.3); CALCIUM 8.8 mg/dL (8.4-11.0); CREATININE 0.82 mg/dL (0.55-1.30); POTASSIUM 3.8 mmol/L (3.5-5.1); TOTAL BILIRUBIN 0.4 mg/dL (0.0-1.0); TOTAL PROTEIN, SERUM 7.8 g/dL (6.4-8.3)
[2024-05-18 01:21] VITALS: BP_SYST 134; PULSE 91; RESP 20; TEMP 98.3; O2SAT 99
== END 2024-05-18 01:21 | disposition home or self-care (01) ==
LOC: SED 20:18
DX: R10.9 Unspecified abdominal pain (principal); K21.9 Gastro-esophageal reflux disease without esophagitis; Z88.1 Allergy status to other antibiotic agents; Z88.5 Allergy status to narcotic agent
CPT/HCPCS: 99285; 74176; 96365; 96375; 80076; 80048; 81001; 85025; 87040; 36415; 81025; 81003; J0696; J1885; J7030; J2270